=== PATIENT | male | born 1955 | race Two or more races ===

== ENCOUNTER → 2025-03-21 10:22 | Outpatient (BNVA) | payer OTHER, SELFPAY | PROVIDERS: Visit Provider Registered Nurse | DX: S13.4XXA Sprain of ligaments of cervical spine, initial encounter (principal); S46.812A Strain of other muscles, fascia and tendons at shoulder and upper arm level, left arm, initial encounter; S40.012A Contusion of left shoulder, initial encounter; S20.212A Contusion of left front wall of thorax, initial encounter; S60.022A Contusion of left index finger without damage to nail, initial encounter; S70.12XA Contusion of left thigh, initial encounter; S70.02XA Contusion of left hip, initial encounter; V53.5XXA Driver of pick-up truck or van injured in collision with car, pick-up truck or van in traffic accident, initial encounter | CPT/HCPCS: 71101; 73030; 73140; 99204 ==

== ENCOUNTER → 2025-03-23 11:24 | Outpatient (BNVA) | payer OTHER, SELFPAY | PROVIDERS: Visit Provider Physician Assistant | DX: S46.892A Other injury of other muscles, fascia and tendons at shoulder and upper arm level, left arm, initial encounter (principal); M54.50 Low back pain, unspecified; S46.812A Strain of other muscles, fascia and tendons at shoulder and upper arm level, left arm, initial encounter; V53.5XXA Driver of pick-up truck or van injured in collision with car, pick-up truck or van in traffic accident, initial encounter | CPT/HCPCS: 99213 ==

== ENCOUNTER → 2025-03-28 11:19 | Outpatient (BNVA) | payer OTHER, SELFPAY | PROVIDERS: Visit Provider Physician Assistant Medical | DX: S43.102A Unspecified dislocation of left acromioclavicular joint, initial encounter (principal); S40.012A Contusion of left shoulder, initial encounter; S39.012A Strain of muscle, fascia and tendon of lower back, initial encounter; S70.12XA Contusion of left thigh, initial encounter; S70.02XA Contusion of left hip, initial encounter; S20.212A Contusion of left front wall of thorax, initial encounter; V53.5XXA Driver of pick-up truck or van injured in collision with car, pick-up truck or van in traffic accident, initial encounter | CPT/HCPCS: 72100; 73552; 99214 ==

== ENCOUNTER → 2025-04-04 13:00 | Outpatient (BNVA) | payer OTHER, SELFPAY | PROVIDERS: PCP Internal Medicine; Visit Provider Physician Assistant Medical | DX: S43.102A Unspecified dislocation of left acromioclavicular joint, initial encounter (principal); S46.812A Strain of other muscles, fascia and tendons at shoulder and upper arm level, left arm, initial encounter; S20.212A Contusion of left front wall of thorax, initial encounter; S70.12XA Contusion of left thigh, initial encounter; S70.02XA Contusion of left hip, initial encounter; S39.012A Strain of muscle, fascia and tendon of lower back, initial encounter; V53.5XXA Driver of pick-up truck or van injured in collision with car, pick-up truck or van in traffic accident, initial encounter | CPT/HCPCS: 99213 ==

== ENCOUNTER → 2025-04-11 13:01 | Outpatient (BNVA) | payer OTHER, SELFPAY | PROVIDERS: PCP Internal Medicine; Visit Provider Physician Assistant Medical | DX: S43.102A Unspecified dislocation of left acromioclavicular joint, initial encounter (principal); S46.912A Strain of unspecified muscle, fascia and tendon at shoulder and upper arm level, left arm, initial encounter; S39.012A Strain of muscle, fascia and tendon of lower back, initial encounter; S20.212A Contusion of left front wall of thorax, initial encounter; S70.12XA Contusion of left thigh, initial encounter; S70.02XA Contusion of left hip, initial encounter; V53.5XXA Driver of pick-up truck or van injured in collision with car, pick-up truck or van in traffic accident, initial encounter | CPT/HCPCS: 99213 ==

== ENCOUNTER → 2025-04-25 13:05 | Outpatient (BNVA) | payer OTHER, SELFPAY | PROVIDERS: PCP Internal Medicine; Visit Provider Physician Assistant Medical | DX: S43.102D Unspecified dislocation of left acromioclavicular joint, subsequent encounter (principal); S46.912D Strain of unspecified muscle, fascia and tendon at shoulder and upper arm level, left arm, subsequent encounter; S20.212D Contusion of left front wall of thorax, subsequent encounter; S70.12XD Contusion of left thigh, subsequent encounter; S70.02XD Contusion of left hip, subsequent encounter; S39.012D Strain of muscle, fascia and tendon of lower back, subsequent encounter; V53.5XXD Driver of pick-up truck or van injured in collision with car, pick-up truck or van in traffic accident, subsequent encounter | CPT/HCPCS: 99213 ==

== ENCOUNTER → 2025-05-09 13:02 | Outpatient (BNVA) | payer OTHER, SELFPAY | PROVIDERS: PCP Internal Medicine; Visit Provider Physician Assistant Medical | DX: S43.102D Unspecified dislocation of left acromioclavicular joint, subsequent encounter (principal); S46.812D Strain of other muscles, fascia and tendons at shoulder and upper arm level, left arm, subsequent encounter; S20.212D Contusion of left front wall of thorax, subsequent encounter; S70.12XD Contusion of left thigh, subsequent encounter; S70.02XD Contusion of left hip, subsequent encounter; S39.012D Strain of muscle, fascia and tendon of lower back, subsequent encounter; V53.5XXD Driver of pick-up truck or van injured in collision with car, pick-up truck or van in traffic accident, subsequent encounter | CPT/HCPCS: 99213 ==

== ENCOUNTER 2025-05-11 11:00 | Outpatient (RCR) | payer OTHER, SELFPAY ==
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
== END 2025-05-15 08:20 | disposition home or self-care (01) ==
LOC: HO.PT 11:00
PROVIDERS: PCP Internal Medicine; Visit Provider Physician Assistant Medical
DX: S39.012D Strain of muscle, fascia and tendon of lower back, subsequent encounter (principal); M62.830 Muscle spasm of back; S42.92XD Fracture of left shoulder girdle, part unspecified, subsequent encounter for fracture with routine healing; S46.912D Strain of unspecified muscle, fascia and tendon at shoulder and upper arm level, left arm, subsequent encounter; V89.2XXD Person injured in unspecified motor-vehicle accident, traffic, subsequent encounter
CPT/HCPCS: 97110; 97112; 97162; 97530

== ENCOUNTER → 2025-05-25 11:18 | Outpatient (BNVA) | payer OTHER, SELFPAY | PROVIDERS: PCP Internal Medicine; Visit Provider Physician Assistant Medical | DX: S40.012D Contusion of left shoulder, subsequent encounter (principal); S20.212D Contusion of left front wall of thorax, subsequent encounter; S70.12XD Contusion of left thigh, subsequent encounter; S70.02XD Contusion of left hip, subsequent encounter; S39.012D Strain of muscle, fascia and tendon of lower back, subsequent encounter; V53.5XXD Driver of pick-up truck or van injured in collision with car, pick-up truck or van in traffic accident, subsequent encounter; Z02.79 Encounter for issue of other medical certificate | CPT/HCPCS: 99213 ==

== ENCOUNTER → 2025-08-22 10:27 | Outpatient (BNVA) | payer OTHER, SELFPAY | PROVIDERS: PCP Internal Medicine; Visit Provider Physician Assistant Medical | DX: S16.1XXA Strain of muscle, fascia and tendon at neck level, initial encounter (principal); S46.819A Strain of other muscles, fascia and tendons at shoulder and upper arm level, unspecified arm, initial encounter; V59.00XA Driver of pick-up truck or van injured in collision with unspecified motor vehicles in nontraffic accident, initial encounter; Z02.79 Encounter for issue of other medical certificate | CPT/HCPCS: 99202 ==

== ENCOUNTER → 2025-08-29 10:14 | Outpatient (BNVA) | payer OTHER, SELFPAY | PROVIDERS: PCP Internal Medicine; Visit Provider Physician Assistant Medical | DX: S16.1XXA Strain of muscle, fascia and tendon at neck level, initial encounter (principal); S46.811A Strain of other muscles, fascia and tendons at shoulder and upper arm level, right arm, initial encounter; V59.00XA Driver of pick-up truck or van injured in collision with unspecified motor vehicles in nontraffic accident, initial encounter; Z02.79 Encounter for issue of other medical certificate | CPT/HCPCS: 99213 ==